=== PATIENT | female | born 1985 | race Caucasian/White ===

== ENCOUNTER 2017-12-17 14:38 | Inpatient (IN) | payer OTHER ==
[2017-12-17 17:04] VITALS: BMI 26.6
--- NOTE | 2017-12-17 19:24 | HP ---
Admission ROS [facility] Chief Complaint: crack / cocaine, THC and heroin rehab Allergies/Adverse Reactions: Allergies Allergy/AdvReac Type Severity Reaction Status Date / Time No Known Allergies Allergy Verified 12/17/17 19:33 History of Present Illness: 32 yo female with hx of nicotine, crack / cocaine, heroin and marijuana dependence is here seeking rehab. Denies no hx of detox. Reports last rehab at [facility] 5 years ago. PMHX: scoliosis, asthma, HVI+, bipolar, depression and paranoia. Denies suicidal / homicidal ideation. Reports was admitted - 12/17/17 at [facility] for suicide attempt by cutting. Reference #: [id number] Others' Prescriptions Patient Name: Alicia Arreguin Date: 1985 Address: [address] [place] [address] Sex: Female Rx Written Rx Dispensed Drug Quantity Days Supply Prescriber Name 09/21/2017 09/21/2017 endocet 10-325 mg tablet 40 20 Dave Rome MD 08/23/2017 08/23/2017 endocet 10-325 mg tablet 40 20 Dave Rome MD 07/22/2017 07/22/2017 endocet 10-325 mg tablet 40 20 Dave Rome MD 06/22/2017 06/22/2017 endocet 10-325 mg tablet 40 20 Dave Rome MD 06/02/2017 06/02/2017 endocet 10-325 mg tablet 40 20 Dave Rome MD 05/03/2017 05/03/2017 endocet 10-325 mg tablet 30 30 Dave Rome MD 03/29/2017 03/29/2017 endocet 10-325 mg tablet 30 30 Dave Rome MD 02/23/2017 02/23/2017 endocet 10-325 mg tablet 40 20 Dave Rome MD 01/21/2017 01/21/2017 endocet 10-325 mg tablet 40 20 Dave Rome MD 12/24/2016 12/25/2016 endocet 10-325 mg tablet 40 20 Dave Rome MD Exam Limitations: No Limitations - Ebola screening Have you traveled outside of the country in the last 21 days: No Have you had contact with anyone from an Ebola affected area: No Have you been sick,other than usual withdrawal symptoms: No Do you have a fever: No - Review of Systems Constitutional: Changes in sleep, Unintentional Wgt. Loss (39 lbs over the past six months) EENT: reports: Dental Problems (missing teeth) Respiratory: reports: No Symptoms reported Cardiac: reports: No Symptoms Reported GI: reports: Diarrhea (3x days), Nausea, Poor Appetite, Poor Fluid Intake : reports: No Symptoms Reported Musculoskeletal: reports: See HPI, Back Pain Integumentary: reports: No Symptoms Reported Neuro: reports: Dizziness Endocrine: reports: No Symptoms Reported Hematology: reports: See HPI Psychiatric: reports: Mood/Affect Appropiate, Orientated x3, Depressed Other Systems: Reviewed and Negative Patient History - Patient Medical History Hx Anemia: Yes (no meds ) Hx Asthma: Yes Hx Chronic Obstructive Pulmonary Disease (COPD): No Hx Cancer: No Hx Cardiac Disorders: No Hx Congestive Heart Failure: No Hx Hypertension: No Hx Hypercholesterolemia: No Hx Pacemaker: No HX Cerebrovascular Accident: No Hx Seizures: No Hx Diabetes: No Hx Gastrointestinal Disorders: No Hx Liver Disease: No Hx Genitourinary Disorders: No Hx Sexually Transmitted Disorders: No Hx Renal Disease (ESRD): No Hx Thyroid Disease: No Hx Human Immunodeficiency Virus (HIV): Yes (on [place] ) Hx Hepatitis C: No Hx Depression: Yes Hx Suicide Attempt: Yes (CUTTING . PSYCH ADM DECEMBER 14) Hx Bipolar Disorder: Yes Hx Schizophrenia: No - Patient Surgical History Past Surgical History: Yes Hx Section: Yes ( 4x ) - PPD History Previous Implant?: No Documented Results: Negative w/o proof PPD to be Administered?: Yes - Smoking Cessation Smoking history: Current every day smoker Have you smoked in the past 12 months: Yes Aproximately how many cigarettes per day: 20 Hx Chewing Tobacco Use: No Initiated information on smoking cessation: Yes 'Breaking Loose' booklet given: 12/17/17 - Substance & Tx. History Hx Alcohol Use: Yes Hx Substance Use: Yes Substance Use Type: Cocaine, Heroin, Marijuana, Opiates Hx Substance Use Treatment: Yes ( Denies no hx of detox. Reports last rehab at [facility] 5 years ago.) - Substances Abused Heroin Route: SNIFF Frequency: 1-2 times per week Amount used: 1 BUNDLE Age of first use: 21 Date of Last Use: 12/10/17 Cocaine Route: Smoking Frequency: Daily Amount used: $500 Age of first use: 18 Date of Last Use: 12/10/17 Marijuana/Hashish Route: Smoking Frequency: Daily Amount used: 2 blunts Age of first use: 10 Date of Last Use: 12/14/17 Family Disease History - Family Disease History Family Disease History: Other: Father (alive, asthma ), Mother (alive, bipolar, asthma ) Admission Physical Exam [facility] - Vital Signs Vital Signs: Vital Signs - 24 hr 12/17/17 16:58 Temperature 99.1 F Pulse Rate 86 Respiratory 18 Rate Blood Pressure 126/78 - Physical General Appearance: Yes: Disheveled, Anxious HEENTM: Yes: EOMI, Hearing grossly Normal, Normal ENT Inspection, Normocephalic , Normal Voice, OMID, Pharynx Normal, Tm's normal, Other (poor) Respiratory: Yes: Chest Non-Tender, Lungs Clear, Normal Breath Sounds, No Respiratory Distress, No Accessory Muscle Use Neck: Yes: No masses,lesions,Nodules, Trachea in good position Breast: Yes: Breast Exam Deferred Cardiology: Yes: Regular Rhythm, Regular Rate Abdominal: Yes: Normal Bowel Sounds, Non Tender, Flat, Soft Genitourinary: Yes: Within Normal Limits Back: Yes: Normal Inspection Musculoskeletal: Yes: full range of Motion, Gait Steady, Pelvis Stable Extremities: Yes: Normal Capillary Refill, Normal Inspection, Normal Range of Motion, Non-Tender Neurological: Yes: gas technician II-XII NML intact, Fully Oriented, Alert, Motor Strength 5/5, Depressed Affect Integumentary: Yes: Normal Color, Dry, Warm, Other (healing lacerations on left forearm, no infection) Lymphatic: Yes: Within Normal Limits - Diagnostic (1) HIV (human immunodeficiency virus infection) Current Visit: Yes Status: Chronic (2) Heroin dependence Current Visit: Yes Status: Acute (3) Marijuana dependence Current Visit: Yes Status: Acute (4) Cocaine dependence Current Visit: Yes Status: Acute Qualifiers: Substance use status: uncomplicated Qualified Code(s): F14.20 - Cocaine dependence, uncomplicated (5) Asthma Current Visit: Yes Status: Chronic Qualifiers: Asthma severity: moderate Asthma persistence: unspecified Asthma complication type: unspecified Qualified Code(s): J45.909 - Unspecified asthma , uncomplicated (6) Back pain Current Visit: Yes Status: Chronic Qualifiers: Back pain location: thoracic back pain Chronicity: chronic Back pain laterality: midline Qualified Code(s): M54.6 - Pain in thoracic spine; G89.29 - Other chronic pain (7) Depressed mood Current Visit: Yes Status: Acute BHS Breath Alcohol Content Breath Alcohol Content: 0 Urine Pregancy Test - Result Urine Test Results: Negative- NO Line Present Urine Drug Screen - Results Drug Screen Negative: No Urine Drug Screen Results: THC-Marijuana, ELOISA-Cocaine Inpatient Rehab Admission - Initial Determination Are CD services needed?: Yes Free of communicable disease: Yes Not in need of hospitalization: Yes - Rehab Admission Criteria Previous failed treatment: Yes Poor recovery environment: Yes Comorbidities: Yes Lacks judgement: Yes Patient is meeting Inpatient Rehab admission criteria:: Yes
[2017-12-17] MEDS ORDERED: NICOTINE POLACRILEX 2 MG GUM BC PRN (19:50)
[2017-12-17] MEDS ORDERED: MAGNESIUM HYDROX 2400MG/30ML ORAL SUSPENSION 30 ML CUP PO PRN (19:50)
[2017-12-17] MEDS ORDERED: MAG HYDROX/AL HYDROX/SIMETH 30 ML UNIT-DOSE CUP PO PRN (19:50)
[2017-12-17] MEDS ORDERED: MENTHOL/PHENOL 1 EACH UD MM PRN (19:50)
[2017-12-17] MEDS ORDERED: hydrOXYzine PAMOATE 50 MG CAPSULE (FP) PO PRN (19:50)
[2017-12-17] MEDS ORDERED: guaiFENesin/D-METHORPHAN HB 10 ML UNIT-DOSE CUPS PO PRN (19:50)
[2017-12-17] MEDS ORDERED: ACETAMINOPHEN 325 MG TABLET (FP) PO PRN (19:50)
[2017-12-17] MEDS ORDERED: IBUPROFEN 400 MG TABLET (FP) PO PRN (19:50)
[2017-12-17] MEDS ORDERED: LOPERAMIDE HCL 2 MG CAPSULE PO PRN (19:50)
[2017-12-17] MEDS ORDERED: P-EPHED 60MG/TRIPROLIDI 2.5MG TABLET PO PRN (19:50)
[2017-12-17] MEDS ORDERED: MAGNESIUM CITRATE 300 ML BOTTLE PO PRN (19:50)
[2017-12-17] MEDS ORDERED: ALBUTEROL SO4 8 GM HFA INHALER IH PRN (19:51)
[2017-12-17] MEDS ORDERED: ALBUTEROL SO4 2.5/IPRATROPIUM 0.5 INH SOL 3 ML VIAL.NEB. NEB PRN (20:05)
[2017-12-17] MEDS: THIAMINE HCL 100 MG TABLET (FP) PO SCH (21:51)
[2017-12-17] MEDS: CYCLOBENZAPRINE HCL 5 MG TABLET PO SCH (21:51)
[2017-12-17] MEDS: BUDESONIDE/FORMETEROL FUMARATE 160/4.5 mcg INHALER IH SCH (21:52)
[2017-12-17] MEDS: LIDOCAINE PATCH REMOVAL MC SCH (21:52)
[2017-12-18] MEDS: CYCLOBENZAPRINE HCL 5 MG TABLET PO SCH ×3 (06:11→21:08)
[2017-12-18] MEDS: PRENATAL VITAMINS W/ FOLIC ACID TABLET (FP) PO SCH (09:56)
[2017-12-18] MEDS: LIDOCAINE 5% TOPICAL PATCH TP SCH (09:56)
[2017-12-18] MEDS: NICOTINE 21 MG/24 HOURS TOPICAL PATCH TD SCH (09:56)
--- NOTE | 2017-12-18 10:18 | EKG ---
Test Reason : Blood Pressure : / mmHG Vent. Rate : 075 BPM Atrial Rate : 075 BPM P-R Int : 150 ms QRS Dur : 076 ms QT Int : 394 ms P-R-T Axes : 055 069 058 degrees QTc Int : 439 ms NORMAL SINUS RHYTHM NORMAL ECG NO PREVIOUS ECGS AVAILABLE Confirmed by NISHA VILLEDA, TATUM ([id number]) on 12/18/2017 10:18:14 AM Referred By: Confirmed By:TATUM CAMERON MD
[2017-12-18 10:31] LABS: RDW 14.5 % (11.6-15.6)
[2017-12-18] MEDS: BUDESONIDE/FORMETEROL FUMARATE 160/4.5 mcg INHALER IH SCH ×2 (10:32→21:09)
[2017-12-18 10:39] LABS: HEMATOCRIT 40.3 % (32.4-45.2); HEMOGLOBIN 13.4 GM/dL (10.7-15.3); MCH 30.6 pg (25.7-33.7); MCHC 33.2 g/dl (32.0-36.0); MEAN CELL VOLUME 92.3 fl (80-96); MEAN PLT VOLUME 10.7 fl (7.5-11.1); PLATELET COUNT 243 K/MM3 (134-434); RBC 4.37 M/mm3 (3.60-5.2); WHITE BLOOD COUNT 10.6 K/mm3 (4.0-10.0)
[2017-12-18 10:42] LABS: CHLORIDE 108 mmol/L (98-107); POTASSIUM 4.1 mmol/L (3.5-5.1); SODIUM 139 mmol/L (136-145)
[2017-12-18 10:53] LABS: URINE APPEARANCE CLEAR; URINE BILIRUBIN NEGATIVE (<2.0 mg/dL); URINE COLOR LTYELLOW; URINE GLUCOSE (UA) NEGATIVE (NEGATIVE); URINE KETONE NEGATIVE (NEGATIVE); URINE LEUK ESTERASE NEGATIVE (NEGATIVE); URINE NITRITE NEGATIVE (NEGATIVE); URINE PROTEIN NEGATIVE (NEGATIVE); URINE UROBILINOGEN NEGATIVE mg/dL (0.2-1.0)
[2017-12-18 10:55] LABS: ALBUMIN 3.1 g/dl (3.4-5.0); ALK PHOS 81 U/L (45-117); ANION GAP 9 (8-16); BILIRUBIN,TOTAL < 0.1 mg/dL (0.2-1.0); BLOOD UREA NITROGEN 15 mg/dL (7-18); CALCIUM 8.3 mg/dL (8.5-10.1); CO2 22 mmol/L (21-32); CREATININE 0.8 mg/dL (0.55-1.02); GLUCOSE,RANDOM 58 mg/dL (74-106); SGOT/AST 24 U/L (15-37); SGPT/ALT 28 U/L (12-78); TOT PROT 6.7 g/dl (6.4-8.2)
[2017-12-18] MEDS: THIAMINE HCL 100 MG TABLET (FP) PO SCH (21:08)
[2017-12-18] MEDS: LIDOCAINE PATCH REMOVAL MC SCH (21:09)
[2017-12-19] MEDS: CYCLOBENZAPRINE HCL 5 MG TABLET PO SCH (06:24)
[2017-12-19] MEDS: LIDOCAINE 5% TOPICAL PATCH TP SCH (09:52)
[2017-12-19] MEDS: PRENATAL VITAMINS W/ FOLIC ACID TABLET (FP) PO SCH (09:52)
[2017-12-19] MEDS: NICOTINE 21 MG/24 HOURS TOPICAL PATCH TD SCH (09:52)
[2017-12-19] MEDS: BUDESONIDE/FORMETEROL FUMARATE 160/4.5 mcg INHALER IH SCH ×2 (09:53→21:09)
[2017-12-19] MEDS: CYCLOBENZAPRINE HCL 10 MG TABLET (FP) PO SCH ×2 (14:05→21:09)
[2017-12-19] MEDS: MELATONIN 5 MG TABLETS PO PRN (21:09)
[2017-12-19] MEDS: THIAMINE HCL 100 MG TABLET (FP) PO SCH (21:09)
[2017-12-19] MEDS: LIDOCAINE PATCH REMOVAL MC SCH (22:18)
[2017-12-20] MEDS: CYCLOBENZAPRINE HCL 10 MG TABLET (FP) PO SCH ×3 (06:30→21:10)
[2017-12-20] MEDS: PRENATAL VITAMINS W/ FOLIC ACID TABLET (FP) PO SCH (09:45)
[2017-12-20] MEDS: NICOTINE 21 MG/24 HOURS TOPICAL PATCH TD SCH (09:46)
[2017-12-20] MEDS: BUDESONIDE/FORMETEROL FUMARATE 160/4.5 mcg INHALER IH SCH ×2 (09:46→21:10)
[2017-12-20] MEDS: LIDOCAINE 5% TOPICAL PATCH TP SCH (09:46)
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
[2017-12-20] MEDS: MELATONIN 5 MG TABLETS PO PRN (21:09)
[2017-12-20] MEDS: THIAMINE HCL 100 MG TABLET (FP) PO SCH (21:09)
[2017-12-20] MEDS: LIDOCAINE PATCH REMOVAL MC SCH (21:10)
[2017-12-21] MEDS: CYCLOBENZAPRINE HCL 10 MG TABLET (FP) PO SCH ×2 (05:58→14:24)
[2017-12-21 06:53] VITALS: BP 113/67; PULSE 78; TEMP 98.1
[2017-12-21] MEDS ORDERED: SERTRALINE HCL 50 MG TABLET (FP) PO SCH (10:00)
[2017-12-21] MEDS ORDERED: risperiDONE 1 MG TABLET (FP) PO SCH (10:00)
[2017-12-21] MEDS: LIDOCAINE 5% TOPICAL PATCH TP SCH (10:02)
[2017-12-21] MEDS: NICOTINE 21 MG/24 HOURS TOPICAL PATCH TD SCH (10:02)
[2017-12-21] MEDS: PRENATAL VITAMINS W/ FOLIC ACID TABLET (FP) PO SCH (10:02)
[2017-12-21] MEDS: BUDESONIDE/FORMETEROL FUMARATE 160/4.5 mcg INHALER IH SCH (10:05)
[2017-12-21] MEDS ORDERED: CYCLOBENZAPRINE HCL 5 MG TABLET PO SCH (22:00)
== END 2017-12-21 19:20 | disposition left against medical advice (07) | DRG 770 ==
LOC: YASAS 14:38 → Y3W 18:20
PROVIDERS: ADMIT Psychiatry & Neurology Psychiatry; ATTEND Psychiatry & Neurology Psychiatry
PROC: HZ42ZZZ Group Counseling for Substance Abuse Treatment, Cognitive-Behavioral (ICD-10-PCS; principal; 2017-12-17)
DX: F11.20 Opioid dependence, uncomplicated (principal); F14.20 Cocaine dependence, uncomplicated; F12.20 Cannabis dependence, uncomplicated; F17.210 Nicotine dependence, cigarettes, uncomplicated; F31.81 Bipolar II disorder; F32.9 Major depressive disorder, single episode, unspecified; J45.909 Unspecified asthma, uncomplicated; M54.9 Dorsalgia, unspecified; G89.29 Other chronic pain; Z21 Asymptomatic human immunodeficiency virus [HIV] infection status; Z91.5 Personal history of self-harm
CPT/HCPCS: 36415; 80053; 81003; 85027; 86593; 93005; 93010; J2794

== ENCOUNTER 2019-07-24 12:58 | Inpatient (IN) | payer OTHER ==
--- NOTE | 2019-07-24 13:49 | BHS.RME ---
Substance Use & Tx History - Substance Use History Alcohol Substance amount: one pint Vodka Frequency of use: Less than 3 times per week Substance route: Oral Date of Last Use: 07/23/19 Opiates (Heroin) Substance amount: 8 bags Frequency of use: Daily Substance route: Inhalation (ex: sniffing or snorting) Date of Last Use: 07/23/19 Cocaine (Crack) Substance amount: $100 Frequency of use: Daily Substance route: Smoking Date of Last Use: 07/23/19 Nicotine Substance amount: 1ppd Frequency of use: Daily Substance route: Smoking Date of Last Use: 07/24/19 Physical/Psych/Mental Status - Behavior General Behavior: Increased activity (restlessness, agitation) Eye Contact: Decreased - Cooperativeness Cooperativeness: Cooperative - Thinking Thought Processes: Tight Thought content: Future oriented - Physical Health Problems Is patient presently having any pain?: Yes (feet, 2 days, walking a lot) Does patient presently have any injuries (include location): No Does patient currently have a fever: No COWS - Scale Resting Pulse: 1= [place] 81-100 Sweatin=Flushed/Facial Moisture Restless Observation: 1= Difficult to Sit Still Pupil Size: 0= Normal to Room Light Bone or Joint Aches: 0= None Runny Nose/ Eye Tearin= Runny Nose/Eyes GI Upset > 30mins: 0= None Tremor Observation: 0= None Yawning Observation: 0= None Anxiety or Irritability: 1=Feels Anxious/Irritable CICA Nausea/Vomitin-No Nausea/No Vomiting Muscle Tremors: None Anxiety: 1-Mildly Anxious Agitation: 1-Slight > Activity Paroxysmal Sweats: 4-Forehead w/Sweat Beads Orientation: 0-Oriented Tacttile Disturbances: 0-None Auditory Disturbances: 2-Mild Harshness/Frighten Visual Disturbances: 0-None Headache: 0-None Present CIWA-Ar Total Score: 8
--- NOTE | 2019-07-24 15:35 | HP ---
COWS - Scale Resting Pulse: 1= [place] 81-100 Sweatin=Flushed/Facial Moisture Restless Observation: 1= Difficult to Sit Still Pupil Size: 0= Normal to Room Light Bone or Joint Aches: 0= None Runny Nose/ Eye Tearin= Runny Nose/Eyes GI Upset > 30mins: 0= None Tremor Observation: 0= None Yawning Observation: 0= None Anxiety or Irritability: 1=Feels Anxious/Irritable Goose Flesh Skin: 0=Smooth Skin COWS Score: 7 CIWA Score Nausea/Vomitin-No Nausea/No Vomiting Muscle Tremors: None Anxiety: 1-Mildly Anxious Agitation: 1-Slight > Activity Paroxysmal Sweats: 4-Forehead w/Sweat Beads Orientation: 0-Oriented Tacttile Disturbances: 0-None Auditory Disturbances: 2-Mild Harshness/Frighten Visual Disturbances: 0-None Headache: 0-None Present CIWA-Ar Total Score: 8 - Admission Criteria OASAS Guidelines: Admission for Medically Managed Detox: Requires at least one of the followin. CIWA greater than 12 2. Seizures within the past 24 hours 3. Delirium tremens within the past 24 hours 4. Hallucinations within the past 24 hours 5. Acute intervention needed for co occurring medical disorder 6. Acute intervention needed for co occurring psychiatric disorder 7. Severe withdrawal that cannot be handled at a lower level of care (continued vomiting, continued diarrhea, abnormal vital signs) requiring intravenous medication and/or fluids 8. Admitting History and Physical - Admission Chief Complaint: 33 year old female present stating: I need to do detox from heroin, crack and alcohol. History of Present Illness: 33 year old female present stating: I need to do detox from heroin, crack and al cohol. last admitted her in 2018 for rehab. PMHx: HIV on BIKTARVY non compliant , anemia, asthma, PSHX: X4 Psych: Bipolar, anxiety, paranoid, MDD. suicidal attempt. 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 2- heroin: 8 bags sniffs daily,fist use age 21, last use 07/22, no h/o over dose. street methadone yesterday. 3- Crack: 100 dollar/day, smokes, first use age 21, last use 07/22. 4- Nicotine: 1 PPD. History Source: Patient Limitations to Obtaining History: Intoxication - Smoking History Smoking history: Current every day smoker Have you smoked in the past 12 months: Yes Aproximately how many cigarettes per day: 20 - Alcohol/Substance Use Hx Alcohol Use: No Admission ROS BHS - HPI Allergies/Adverse Reactions: Allergies Allergy/AdvReac Type Severity Reaction Status Date / Time No Known Allergies Allergy Verified 12/17/17 19:33 Exam Limitations: Intoxication - Ebola screening Have you traveled outside of the country in the last 21 days: No Have you had contact with anyone from an Ebola affected area: No Have you been sick,other than usual withdrawal symptoms: No Do you have a fever: No - Review of Systems Constitutional: Unintentional Wgt. Loss (lost 20 pound in one month) EENT: reports: No Symptoms Reported Respiratory: reports: No Symptoms reported Cardiac: reports: No Symptoms Reported GI: reports: No Symptoms Reported : reports: No Symptoms Reported Musculoskeletal: reports: Back Pain Integumentary: reports: No Symptoms Reported Neuro: reports: No Symptoms reported Endocrine: reports: No Symptoms Reported Hematology: reports: No Symptoms Reported Psychiatric: reports: Anxious Patient History - Patient Medical History Hx Anemia: Yes (no meds ) Hx Asthma: Yes Hx Chronic Obstructive Pulmonary Disease (COPD): No Hx Cancer: No Hx Cardiac Disorders: No Hx Congestive Heart Failure: No Hx Hypertension: No Hx Hypercholesterolemia: No Hx Pacemaker: No HX Cerebrovascular Accident: No Hx Seizures: No Hx Diabetes: No Hx Gastrointestinal Disorders: No Hx Liver Disease: No Hx Genitourinary Disorders: No Hx Sexually Transmitted Disorders: No Hx Renal Disease (ESRD): No Hx Thyroid Disease: No Hx Human Immunodeficiency Virus (HIV): Yes (on Gy ) Hx Hepatitis C: No Hx Depression: Yes Hx Suicide Attempt: Yes (CUTTING . PSYCH ADM DECEMBER 14) Hx Bipolar Disorder: Yes Hx Schizophrenia: No - Patient Surgical History Past Surgical History: Yes Hx Section: Yes ( 4x ) - PPD History Date: 12/19/17 - Smoking Cessation Smoking history: Current every day smoker Have you smoked in the past 12 months: Yes Aproximately how many cigarettes per day: 20 Hx Chewing Tobacco Use: No Initiated information on smoking cessation: Yes 'Breaking Loose' booklet given: 07/24/19 - Substances abused Alcohol Substance route: Oral Frequency: Daily Amount used: 1 pint of vodka Age of first use: 15 Date of last use: 07/23/19 Heroin Substance route: Inhalation Frequency: Daily Amount used: 8 bags Age of first use: 21 Date of last use: 07/23/19 Crack Substance route: Smoking Frequency: Daily Amount used: 100 dollar Age of first use: 21 Date of last use: 07/23/19 Admission Physical Exam [facility] - Physical General Appearance: Yes: Anxious, Other (intoxicated , sleepy) HEENTM: Yes: Hearing grossly Normal, Normocephalic, Normal Voice Respiratory: Yes: Lungs Clear Neck: Yes: Supple Breast: Yes: Breast Exam Deferred Cardiology: Yes: Regular Rate, S1, S2 Abdominal: Yes: Normal Bowel Sounds, Non Tender, Flat, Soft Genitourinary: Yes: Other (deffered) Back: Yes: Normal Inspection Musculoskeletal: Yes: Within Normal Limits Extremities: Yes: Within Normal Limits Neurological: Yes: Other (sleepy) Integumentary: Yes: Within Normal Limits, Dry - Diagnostic (1) Opioid abuse Current Visit: Yes Status: Acute (2) Alcohol dependence with withdrawal, uncomplicated Current Visit: Yes Status: Acute (3) Nicotine dependence Current Visit: Yes Status: Chronic (4) Cocaine dependence Current Visit: Yes Status: Acute Qualifiers: Substance use status: uncomplicated Qualified Code(s): F14.20 - Cocaine dependence, uncomplicated Cleared for Admission [facility] - Detox or Rehab [facility] Level of Care: Medically Managed Detox Regimen/Protocol: Methadone/Librium Breathalyzer - Breathalyzer Breathalyzer: 0 Urine Drug Screen - Test Device Lot number: [id number] Expiration date: 04/15/21 - Control Is test valid?: Yes - Results Drug screen NEGATIVE: No Urine drug screen results: THC-Marijuana, ELOISA-Cocaine, MOP-Opiates, MTD- Methadone Inpatient Rehab Admission - Rehab Decision to Admit Inpatient rehab admission?: No
[2019-07-24] MEDS ORDERED: ALBUTEROL SO4 8 GM HFA INHALER IH PRN (15:50)
[2019-07-24] MEDS ORDERED: METHOCARBAMOL 500 MG TABLET PO PRN (15:50)
[2019-07-24] MEDS ORDERED: chlordiazePOXIDE HCL 25 MG CAPSULE PO PRN (15:50)
[2019-07-24] MEDS ORDERED: MENTHOL/PHENOL 1 EACH UD MM PRN (15:50)
[2019-07-24] MEDS ORDERED: MAGNESIUM CITRATE 300 ML BOTTLE PO PRN (15:50)
[2019-07-24] MEDS ORDERED: MAG HYDROX/AL HYDROX/SIMETH 30 ML UNIT-DOSE CUP PO PRN (15:50)
[2019-07-24] MEDS ORDERED: MAGNESIUM HYDROX 2400MG/30ML ORAL SUSPENSION 30 ML CUP PO PRN (15:50)
[2019-07-24] MEDS ORDERED: NICOTINE POLACRILEX 2 MG GUM BUC PRN (15:50)
[2019-07-24] MEDS ORDERED: BISMUTH SUBSALICYLATE 524 MG/30 ML UD PO PRN (15:50)
[2019-07-24] MEDS ORDERED: ACETAMINOPHEN 325 MG TABLET (FP) PO PRN ×2 (15:50)
[2019-07-24] MEDS ORDERED: IBUPROFEN 400 MG TABLET (FP) PO PRN (15:50)
[2019-07-24] MEDS ORDERED: cloNIDine HCL 0.1 MG TABLET PO PRN (15:50)
[2019-07-24 16:28] VITALS: BMI 27.8
[2019-07-24] MEDS ORDERED: METHADONE HCL 10 MG TABLET (FOR DETOX USE ONLY) PO ONE (18:00)
[2019-07-24] MEDS ORDERED: ONDANSETRON *ODT* 4 MG TABLET SL ONE (18:00)
[2019-07-24] MEDS: hydrOXYzine PAMOATE 25 MG CAPSULE (FP) PO SCH ×2 (18:31→22:24)
[2019-07-24] MEDS: chlordiazePOXIDE HCL 25 MG CAPSULE PO SCH ×2 (18:31→22:24)
[2019-07-24] MEDS: NICOTINE 21 MG/24 HOURS TOPICAL PATCH TD SCH (20:40)
[2019-07-24] MEDS: PRENATAL VITAMINS W/ FOLIC ACID TABLET (FP) PO SCH (20:41)
[2019-07-24] MEDS ORDERED: THIAMINE HCL 100 MG TABLET (FP) PO SCH (22:00)
[2019-07-24] MEDS ORDERED: MELATONIN 5 MG TABLETS PO SCH (22:00)
[2019-07-24] MEDS: BUDESONIDE/FORMETEROL FUMARATE 160/4.5 mcg INHALER IH SCH (22:25)
[2019-07-25] MEDS: hydrOXYzine PAMOATE 25 MG CAPSULE (FP) PO SCH ×2 (05:42→10:11)
[2019-07-25] MEDS: chlordiazePOXIDE HCL 25 MG CAPSULE PO SCH ×2 (05:42→10:12)
[2019-07-25 09:19] VITALS: BP 96/60; PULSE 60; TEMP 98.4
[2019-07-25] MEDS ORDERED: METHADONE HCL 10 MG TABLET (FOR DETOX USE ONLY) ONE (09:42)
[2019-07-25] MEDS ORDERED: METHADONE HCL 5 MG TABLET (FOR DETOX USE ONLY) ONE (09:43)
[2019-07-25] MEDS ORDERED: METHADONE (DETOX) 20 MG, METHADONE (DETOX) 5 MG PO ONE (10:00)
[2019-07-25 10:08] LABS: HEMATOCRIT 38.6 % (32.4-45.2); HEMOGLOBIN 12.6 GM/dL (10.7-15.3); MCH 30.3 pg (25.7-33.7); MCHC 32.7 g/dl (32.0-36.0); MEAN CELL VOLUME 92.6 fl (80-96); MEAN PLT VOLUME 9.5 fl (7.5-11.1); PLATELET COUNT 299 K/MM3 (134-434); RBC 4.17 M/mm3 (3.60-5.2); RDW 15.8 % (11.6-15.6)
[2019-07-25] MEDS: BUDESONIDE/FORMETEROL FUMARATE 160/4.5 mcg INHALER IH SCH (10:09)
[2019-07-25] MEDS: NICOTINE 21 MG/24 HOURS TOPICAL PATCH TD SCH (10:10)
[2019-07-25] MEDS: PRENATAL VITAMINS W/ FOLIC ACID TABLET (FP) PO SCH (10:10)
[2019-07-25 10:11] LABS: ALBUMIN 2.8 g/dl (3.4-5.0); ALK PHOS 73 U/L (45-117); ANION GAP 5 MMOL/L (8-16); BILIRUBIN,TOTAL < 0.1 mg/dL (0.2-1); BLOOD UREA NITROGEN 12.6 mg/dL (7-18); CALCIUM 8.1 mg/dL (8.5-10.1); CHLORIDE 108 mmol/L (98-107); CO2 27 mmol/L (21-32); CREATININE 0.9 mg/dL (0.55-1.3); GLUCOSE,RANDOM 65 mg/dL (74-106); POTASSIUM 4.5 mmol/L (3.5-5.1); SGOT/AST 19 U/L (15-37); SGPT/ALT 19 U/L (13-61); SODIUM 139 mmol/L (136-145); TOT PROT 6.6 g/dl (6.4-8.2)
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
--- NOTE | 2019-07-25 11:03 | EKG ---
Test Reason : Blood Pressure : / mmHG Vent. Rate : 058 BPM Atrial Rate : 058 BPM P-R Int : 164 ms QRS Dur : 088 ms QT Int : 456 ms P-R-T Axes : 050 065 044 degrees QTc Int : 447 ms SINUS BRADYCARDIA OTHERWISE NORMAL ECG WHEN COMPARED WITH ECG OF 17-DEC-2017 20:25, NO SIGNIFICANT CHANGE WAS FOUND Confirmed by Sushant Butler MD ([id number]) on 07/25/2019 11:02:58 AM Referred By: STEVEN GARCIA Confirmed By:Sushant Butler MD
--- NOTE | 2019-07-25 16:02 | DS ---
[facility] Detox Discharge Summary Admission Date: 07/24/19 Discharge Date: 07/25/19 - History Present History: Alcohol Dependence, Opioid Dependence Additional Comments: 33 years old female admitted on 07/24/19 for alcohol and opiate withdrawal sx management treated with librium and methadone detox regiments Ms Arreguin insists to leave the detox unit that her 12 years old son is home threatening three other children patient is alert oriented x 3 speech clearly coherently ambulating with steady gait seen by psychiatrist no medical intervention Pertinent Past History: time for discharge 57 minutes counselor, nurse, production underwriter met with the patient, discuss the benefits of detox completion patient is worry about her children insists to leave the detox today patient considers return to infectious disease primary day care home mother for aftercare - Physical Exam Results Vital Signs: Vital Signs Temperature 98.4 F 07/25/19 08:43 Pulse Rate 60 07/25/19 08:43 Respiratory Rate 16 07/25/19 08:43 Blood Pressure 96/60 07/25/19 08:43 O2 Sat by Pulse Oximetry (%) Pertinent Admission Physical Exam Findings: alcohol and opiate withdrawal Laboratory Last Values WBC 8.0 K/mm3 (4.0-10.0) 07/25/19 07:45 RBC 4.17 M/mm3 (3.60-5.2) 07/25/19 07:45 Hgb 12.6 GM/dL (10.7-15.3) 07/25/19 07:45 Hct 38.6 % (32.4-45.2) 07/25/19 07:45 MCV 92.6 fl (80-96) 07/25/19 07:45 MCH 30.3 pg (25.7-33.7) 07/25/19 07:45 MCHC 32.7 g/dl (32.0-36.0) 07/25/19 07:45 RDW 15.8 % (11.6-15.6) H 07/25/19 07:45 Plt Count 299 K/MM3 (134-434) D 07/25/19 07:45 MPV 9.5 fl (7.5-11.1) D 07/25/19 07:45 Sodium 139 mmol/L (136-145) 07/25/19 07:45 Potassium 4.5 mmol/L (3.5-5.1) 07/25/19 07:45 Chloride 108 mmol/L (98-107) H 07/25/19 07:45 Carbon Dioxide 27 mmol/L (21-32) 07/25/19 07:45 Anion Gap 5 MMOL/L (8-16) L 07/25/19 07:45 BUN 12.6 mg/dL (7-18) 07/25/19 07:45 Creatinine 0.9 mg/dL (0.55-1.3) 07/25/19 07:45 Est GFR (CKD-EPI)AfAm 97.37 07/25/19 07:45 Est GFR (CKD-EPI)NonAf 84.01 07/25/19 07:45 Random Glucose 65 mg/dL (74-106) L 07/25/19 07:45 Calcium 8.1 mg/dL (8.5-10.1) L 07/25/19 07:45 Total Bilirubin < 0.1 mg/dL (0.2-1) L 07/25/19 07:45 AST 19 U/L (15-37) 07/25/19 07:45 ALT 19 U/L (13-61) 07/25/19 07:45 Alkaline Phosphatase 73 U/L (45-117) 07/25/19 07:45 Total Protein 6.6 g/dl (6.4-8.2) 07/25/19 07:45 Albumin 2.8 g/dl (3.4-5.0) L 07/25/19 07:45 POC Urine HCG, Qual Negative 07/24/19 14:08 RPR Titer Nonreactive (NONREACTIVE) 07/25/19 07:45 Vital Signs Temperature 98.4 F 07/25/19 08:43 Pulse Rate 60 07/25/19 08:43 Respiratory Rate 16 07/25/19 08:43 Blood Pressure 96/60 07/25/19 08:43 O2 Sat by Pulse Oximetry (%) lab noted - Treatment Hospital Course: Detox Protocol Followed, Discharged Condition Good Patient has Accepted a Rehab Referral to: community support NA - Medication Discharge Medications: Ambulatory Orders NK [No Known Home Medication] 07/24/19 - Diagnosis (1) Opioid dependence, uncomplicated Status: Acute (2) Alcohol dependence with withdrawal, uncomplicated Status: Acute (3) Asthma Status: Chronic Qualifiers: Asthma severity: moderate Asthma persistence: unspecified Asthma complication type: unspecified Qualified Code(s): J45.909 - Unspecified asthma, uncomplicated (4) HIV (human immunodeficiency virus infection) Status: Chronic Qualifiers: HIV symptom status: asymptomatic Qualified Code(s): Z21 - Asymptomatic human immunodeficiency virus [HIV] infection status (5) Nicotine dependence Status: Acute Qualifiers: Nicotine product type: cigarettes Substance use status: in withdrawal Qualified Code(s): F17.213 - Nicotine dependence, cigarettes, with withdrawal (6) Substance induced mood disorder Status: Suspected - AMA Did Patient Leave Against Medical Advice: Yes
[2019-07-26] MEDS ORDERED: chlordiazePOXIDE HCL 25 MG CAPSULE PO SCH (05:00)
[2019-07-26] MEDS ORDERED: METHADONE HCL 10 MG TABLET (FOR DETOX USE ONLY) PO ONE (10:00)
[2019-07-27] MEDS ORDERED: chlordiazePOXIDE HCL 10 MG CAPSULE PO PRN
[2019-07-27] MEDS ORDERED: chlordiazePOXIDE HCL 10 MG CAPSULE PO SCH (05:00)
[2019-07-27] MEDS ORDERED: METHADONE (DETOX) 10 MG, METHADONE (DETOX) 5 MG PO ONE (10:00)
[2019-07-28] MEDS ORDERED: chlordiazePOXIDE HCL 10 MG CAPSULE PO SCH (05:00)
[2019-07-28] MEDS ORDERED: METHADONE HCL 10 MG TABLET (FOR DETOX USE ONLY) PO ONE (10:00)
[2019-07-29] MEDS ORDERED: chlordiazePOXIDE HCL 10 MG CAPSULE PO ONE (05:00)
[2019-07-29] MEDS ORDERED: METHADONE HCL 5 MG TABLET (FOR DETOX USE ONLY) PO ONE (06:00)
== END 2019-07-25 11:51 | disposition left against medical advice (07) | DRG 770 ==
LOC: YASAS 12:58 → Y3N 16:36
PROVIDERS: ADMIT Allergy & Immunology; ATTEND Allergy & Immunology
PROC: HZ2ZZZZ Detoxification Services for Substance Abuse Treatment (ICD-10-PCS; principal; 2019-07-24)
DX: F10.230 Alcohol dependence with withdrawal, uncomplicated (principal); F11.23 Opioid dependence with withdrawal; F14.20 Cocaine dependence, uncomplicated; F12.20 Cannabis dependence, uncomplicated; F17.210 Nicotine dependence, cigarettes, uncomplicated; F31.9 Bipolar disorder, unspecified; F19.24 Other psychoactive substance dependence with psychoactive substance-induced mood disorder; Z21 Asymptomatic human immunodeficiency virus [HIV] infection status; D64.9 Anemia, unspecified; J45.909 Unspecified asthma, uncomplicated; Z62.810 Personal history of physical and sexual abuse in childhood; Z91.5 Personal history of self-harm
CPT/HCPCS: 36415; 80053; 81025; 85027; 86593; 93005; 93010; Q0162